=== PATIENT | male | born 1945 | race Caucasian/White ===

== ENCOUNTER → 2019-02-28 08:53 | Outpatient (CLI) | payer OTHER, MEDICARE, SELFPAY ==
--- NOTE | 2019-03-07 15:53 | PM.PFT.1 ---
Pulmonary Function Test Referral & Results Date Patient Seen: 02/28/19 Requesting provider: Bjorn Reynolds Results: The spirometry demonstrates an FVC of 4.34 L which is 111% of predicted. The FEV1 was measured at 2.40 L which is 80% of predicted. The FEV1/FVC ratio was 55 which is 73% of predicted. Following the administration of bronchodilator there was 17% improvement in FEV1 and a 75% improvement in FEF 25-75%. Lung volumes show an SVC of 4.18 L which is 116% of predicted. The diffusing capacity was measured 27.91 which is 79% of predicted. No hemoglobin value was provided, so no correction for potential anemia could be made, if appropriate. The maximum voluntary ventilation was reduced Interpretation: This study demonstrates mild obstructive lung disease with limited evidence of benefit following bronchodilator particularly small airway flow based on improvement in FEF 25-75% as above There is also minimal reduction in diffusing capacity suggesting the possibility of some disease of the capillary alveolar level Clinical correlation suggested
== END ==
PROVIDERS: Family Provider Family Medicine; PCP Family Medicine; Visit Provider Internal Medicine Gastroenterology
DX: R06.02 Shortness of breath (principal)
CPT/HCPCS: 94060; 94726; 94729

== ENCOUNTER → 2019-07-09 11:38 | Outpatient (CLI) | payer OTHER, MEDICARE, SELFPAY ==
--- NOTE | 2019-07-09 | DI.US.S_ITS ---
PROCEDURE: US ABDOMEN LIMITED INDICATIONS: ABNORMAL LFT'S TECHNIQUE: Real-time focused scanning was performed of the abdomen, with image documentation. COMPARISON: None. FINDINGS: Liver appears normal, bile ducts are not dilated. The common duct measures up to 3.9 mm in maximal axial dimension. No gallstones are seen. The pancreas could not be identified due to bowel gas. IMPRESSION: Limited evaluation at clinician request, no biliary distention or liver lesion found. The pancreas could not be seen due to bowel gas. Normal hepatic echotexture. Dictated by: Chevy Demarco M.D. on 07/09/2019 at 15:38 Approved by: Chevy Demarco M.D. on 07/09/2019 at 15:39
== END ==
PROVIDERS: PCP Family Medicine; Visit Provider Family Medicine
DX: R94.5 Abnormal results of liver function studies (principal)
CPT/HCPCS: 76705

== ENCOUNTER → 2022-09-01 12:57 | Outpatient (CLI) | payer OTHER, MEDICARE, SELFPAY ==
--- NOTE | 2022-09-01 | DI.CT.S_ITS ---
PROCEDURE: CT PEL WO CON INDICATIONS: FOREIGN BODY TECHNIQUE: Noncontrast 3 mm axial sections acquired through the bony pelvis, with coronal and sagittal reformatting. COMPARISON: None. FINDINGS: Image quality: Excellent. Bones: Pelvic ring is intact. No pelvic fracture or dislocation. Extensive fusion of visualized lower lumbar spine is seen. Osteoarthritic changes are noted throughout bony pelvis. No evidence of avascular necrosis of femoral head. No suspicious intraosseous lesion. Soft tissues: A penile implant is seen. 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 No pelvic free fluid or free air is seen. No evidence of bowel obstruction or abnormal bowel wall thickening. Bladder wall thickness is normal. No inguinal lymphadenopathy. Moderate atherosclerotic calcifications in abdominal aorta is seen. IMPRESSION: 1. Penile implant in place. The reservoir appears to be collapsed in right anterior lower pelvis adjacent to symphysis pubis. 2. No pelvic free fluid or free air. No bowel obstruction or abnormal bowel wall thickening. Normal bladder wall thickness. 3. Osteoarthritis throughout bony pelvis. No fracture or dislocation. No evidence of avascular necrosis. Extensive fusion throughout visualized lower lumbar spine is seen. No acute vertebral body compression fracture. Dictated by: Viktor Kaplan M.D. on 09/01/2022 at 13:59 Approved by: Viktor Kaplan M.D. on 09/01/2022 at 14:04
== END ==
PROVIDERS: PCP Family Medicine; Referring Provider Urology; Visit Provider Urology
DX: T83.410A Breakdown (mechanical) of implanted penile prosthesis, initial encounter (principal); M19.09 Primary osteoarthritis, other specified site; Z98.1 Arthrodesis status
CPT/HCPCS: 72192